=== PATIENT | male | born 1995 | race Caucasian/White ===

== ENCOUNTER 2018-09-16 08:53 | Emergency (ER) | payer OTHER ==
[2018-09-16 09:21] LABS: PLATELET COUNT, AUTOMATED 259 K/uL (150-450)
--- NOTE | 2018-09-16 09:41 | ER Report ---
History and Physical Time Seen By MD: 09:05 Hx. of Stated Complaint: EMS REPORTS SEIZURE LIKE ACTIVITY. PATIENT IS UNABLE TO ANSWER ANY QUESTIONS. ER PROVIDER ORDERED SOFT RESTRAINTS HPI/ROS CHIEF COMPLAINT: Unresponsive altered mental HISTORY OF PRESENT ILLNESS: Patient is a 22-year-old male comes emergency Department via EMS after having a witnessed reported seizure activity well with his girlfriend. On arrival EMS that he was altered mental somewhat combative Sitting up a phasic unclear if he has a seizure history or not. Arrival to the emergency department able to get history until mother arrive she does confirm that he has had seizures in the past primarily was younger has not had one in a while. Patient able to give a need any additional history at this time. Patient placed in soft restraints for safety on arrival patient also received 2 mg of Ativan en route. REVIEW OF SYSTEMS: Respiratory: No cough, no dyspnea. Cardiovascular: No chest pain, no palpitations. Gastrointestinal: No vomiting, no abdominal pain. Musculoskeletal: No back pain. Remainder of the 14 system rev: Yes Allergies: Coded Allergies: No Known Drug Allergies (Unverified , 09/16/18) Unable To Obtain Past Medical: Unable to Obtain/Update Reviewed Nurses Notes: Yes Old Medical Records Reviewed: Yes Hx Substance Use Disorder: Yes Hx Alcohol Use: Yes Constitutional Vital Sign - Last 24 Hours 09/16/18 09/16/18 09/16/18 09/16/18 08:53 08:54 08:55 08:56 Pulse 69 76 Resp 30 24 B/P (MAP) 110/72 110/72 (85) O2 Flow Rate 2.0 09/16/18 09/16/18 09/16/18 09/16/18 09:00 09:23 09:42 09:53 Pulse 73 Resp 26 25 B/P (MAP) 113/76 (88) 116/83 (94) Pulse Ox 97 09/16/18 09/16/18 10:00 11:17 B/P (MAP) 112/81 (91) 116/70 (85) Physical Exam General Appearance: [The patient is alert, has no immediate need for airway protection and no current signs of toxicity.] Altered mental a phasic Eyes: Pupils equal and round no injection. Respiratory: Chest is non tender, lungs are clear to auscultation. Cardiac: regular rate and rhythm [ ] Gastrointestinal: Abdomen is soft and non tender, no masses, bowel sounds normal. Musculoskeletal: Neck: Neck is supple and non tender. Extremities have full range of motion and are non tender. Skin: No rashes or lesions. [ ] DIFFERENTIAL DIAGNOSIS: After history and physical exam differential diagnosis was considered for seizure postictal altered mental status drug reaction stroke Medical Decision Making Data Points Result Diagram: 09/16/18 0907 09/16/18 0907 Laboratory Hematology Test 09/16/18 09:07 09/16/18 11:30 Red Blood Count 4.79 M/uL (4.00-5.60) Mean Corpuscular Volume 93.8 fL (80.0-96.0) Mean Corpuscular Hemoglobin 31.4 pg (26.0-33.0) Mean Corpuscular Hemoglobin Concent 33.4 g/dL (32.0-36.0) Red Cell Distribution Width 12.7 % (11.5-14.5) Mean Platelet Volume 8.7 fL (7.2-11.1) Neutrophils (%) (Auto) 69.5 % (39.4-72.5) Lymphocytes (%) (Auto) 24.2 % (17.6-49.6) Monocytes (%) (Auto) 3.4 % (4.1-12.4) Eosinophils (%) (Auto) 2.3 % (0.4-6.7) Basophils (%) (Auto) 0.6 % (0.3-1.4) Nucleated RBC Relative Count (auto) 0.0 /100WBC Neutrophils # (Auto) 5.6 K/uL (2.0-7.4) Lymphocytes # (Auto) 2.0 K/uL (1.3-3.6) Monocytes # (Auto) 0.3 K/uL (0.3-1.0) Eosinophils # (Auto) 0.2 K/uL (0.0-0.5) Basophils # (Auto) 0.0 K/uL (0.0-0.1) Nucleated RBC Absolute Count (auto) 0.00 K/uL Sodium Level 139 mmol/L (137-145) Potassium Level 3.7 mmol/L (3.5-5.0) Chloride Level 105 mmol/L (98-107) Carbon Dioxide Level 19 mmol/L (22-30) Blood Urea Nitrogen 13 mg/dl (9-21) Creatinine 1.00 mg/dl (0.66-1.25) Glomerular Filtration Rate Calc > 60.0 Random Glucose 190 mg/dl (75-110) Calcium Level 9.2 mg/dl (8.4-10.2) Magnesium Level 2.3 mg/dl (1.7-2.2) Total Bilirubin 0.2 mg/dl (0.2-1.3) Aspartate Amino Transf (AST/SGOT) 29 U/L (0-35) Alanine Aminotransferase (ALT/SGPT) 14 U/L (0-56) Alkaline Phosphatase 81 U/L (0-126) Total Protein 7.3 g/dl (6.3-8.2) Albumin 4.6 g/dl (3.5-5.0) Thyroid Stimulating Hormone (TSH) 2.02 uIU/ml (0.46-4.68) Salicylates Level < 10 mg/L Salicylate Last Dose Date unk Acetaminophen Level < 10 ug/ml Serum Alcohol < 10 mg/dl Chemistry Test 09/16/18 09:07 09/16/18 11:30 White Blood Count 8.1 k/uL (4.5-11.0) Red Blood Count 4.79 M/uL (4.00-5.60) Hemoglobin 15.0 g/dL (14.0-18.0) Hematocrit 44.9 % (42.0-52.0) Mean Corpuscular Volume 93.8 fL (80.0-96.0) Mean Corpuscular Hemoglobin 31.4 pg (26.0-33.0) Mean Corpuscular Hemoglobin Concent 33.4 g/dL (32.0-36.0) Red Cell Distribution Width 12.7 % (11.5-14.5) Platelet Count 259 K/uL (150-450) Mean Platelet Volume 8.7 fL (7.2-11.1) Neutrophils (%) (Auto) 69.5 % (39.4-72.5) Lymphocytes (%) (Auto) 24.2 % (17.6-49.6) Monocytes (%) (Auto) 3.4 % (4.1-12.4) Eosinophils (%) (Auto) 2.3 % (0.4-6.7) Basophils (%) (Auto) 0.6 % (0.3-1.4) Nucleated RBC Relative Count (auto) 0.0 /100WBC Neutrophils # (Auto) 5.6 K/uL (2.0-7.4) Lymphocytes # (Auto) 2.0 K/uL (1.3-3.6) Monocytes # (Auto) 0.3 K/uL (0.3-1.0) Eosinophils # (Auto) 0.2 K/uL (0.0-0.5) Basophils # (Auto) 0.0 K/uL (0.0-0.1) Nucleated RBC Absolute Count (auto) 0.00 K/uL Glomerular Filtration Rate Calc > 60.0 Calcium Level 9.2 mg/dl (8.4-10.2) Magnesium Level 2.3 mg/dl (1.7-2.2) Total Bilirubin 0.2 mg/dl (0.2-1.3) Aspartate Amino Transf (AST/SGOT) 29 U/L (0-35) Alanine Aminotransferase (ALT/SGPT) 14 U/L (0-56) Alkaline Phosphatase 81 U/L (0-126) Total Protein 7.3 g/dl (6.3-8.2) Albumin 4.6 g/dl (3.5-5.0) Thyroid Stimulating Hormone (TSH) 2.02 uIU/ml (0.46-4.68) Salicylates Level < 10 mg/L Salicylate Last Dose Date unk Acetaminophen Level < 10 ug/ml Serum Alcohol < 10 mg/dl Toxicology Test 09/16/18 09:07 09/16/18 11:30 Salicylates Level < 10 mg/L Salicylate Last Dose Date unk Acetaminophen Level < 10 ug/ml Serum Alcohol < 10 mg/dl Urinalysis Test 09/16/18 11:30 ED Course/Re-evaluation ED Course ED course patient's family is not bedside and reportedly has had a couple of similar episodes when he was younger approximately 13 years old he had an episode about a year after that he had an episode however he didn't B was seen by a neurologist and EEG which is negative and does not report subsequent issues since then due to the negative workup by neurology negative head CT today Baseline labs were relatively unremarkable and went about an MRI and MRA of the brain MRI of the brain showed no obvious focal abnormalities to explain his seizure activity this may just be undiagnosed and infrequent seizure recommending follow-up with neurologist I last time he is seen was almost 10 years ago questions asked about prophylactically giving him antiseizure medicine since his 1st isolated seizure in the last 10 years prior to the family they have declined a seizure medication this time is reasonable however things worsen I advised him to call me or come back in the ED patient will be discharged back to primary care and follow-up with neurology Decision to Disposition Date: September 16, 2018 Decision to Disposition Time: 11:44 Depart Departure Latest Vital Signs Vital Signs Date Time Temp Pulse Resp B/P (MAP) Pulse Ox O2 Delivery O2 Flow Rate FiO2 09/16/18 11:17 116/70 (85) 09/16/18 09:53 25 09/16/18 09:23 73 97 09/16/18 08:56 2.0 Impression: Primary Impression: Seizure Condition: Improved Disposition: HOME OR SELF-CARE Referrals: CHELE CLAYTON DNP, [employer]-[facility] (PCP) 5 Days Patient Instructions: New-Onset Seizure in Adults (DC) SHAHNAZ MONCADA MD September 16, 2018 09:41
--- NOTE | 2018-09-16 10:03 | RADIOLOGY IMAGING REPORT ---
FACILITY: [facility] PATIENT NAME: Zain Garcia : 1995 MR: [id number] V: [id number] EXAM DATE: ORDERING PHYSICIAN: SHAHNAZ MONCADA TECHNOLOGIST: Location: [facility] Patient: Zain Garcia : 1995 Visit/Account:[id number] Date of Sevice: 09/16/2018 EXAMINATION: CT Head without intravenous contrast HISTORY: Altered mental status. TECHNIQUE: Axial images were obtained from the skull base to the vertex without intravenous contrast . Sagittal and coronal reformatted images are also submitted. One of the following dose optimization techniques was utilized in the performance of this exam: Autom ated exposure control; adjustment of the mA and/or kV according to the patient's size; or use of an i terative reconstruction technique. Specific details can be referenced in the facility's radiology C T exam operational policy. COMPARISON: None available. FINDINGS: Brain volume: Normal. Ventricles: Negative. Acute ischemic changes: None. Hemorrhage: None. Masses / edema: None. Mcclellan-white: Negative. White matter: Negative. Vessels: Negative. Extra-axial: A few small calcifications along the falx. Otherwise negative. Calvarium / skull base: Negative. Visualized sinuses / orbits: Negative. IMPRESSION: No acute intracranial abnormality. Report Dictated By: Lee King MD at 09/16/2018 9:54 AM Report E-Signed By: Lee King MD at 09/16/2018 9:58 AM [email or web address]
[2018-09-16] MEDS ORDERED: GADOBENATE 529MG/1ML 15ML VIAL IVP ONE (10:45)
--- NOTE | 2018-09-16 11:25 | RADIOLOGY IMAGING REPORT ---
FACILITY: [facility] PATIENT NAME: Zain Garcia : 1995 MR: [id number] V: [id number] EXAM DATE: ORDERING PHYSICIAN: SHAHNAZ MONCADA TECHNOLOGIST: Location: [facility] [place] Patient: Zain Garcia : 1995 Visit/Account:[id number] Date of Sevice: 09/16/2018 EXAMINATION: MRI Brain without intravenous contrast MRI Brain with intravenous contrast HISTORY: Altered mental status. COMPARISON: Noncontrast head CT from same date. TECHNIQUE: Multi-planar, multi-sequence brain MRI was performed before and after IV gadolinium. CONTRAST: 13 mL of IV MultiHance FINDINGS: Brain volume: Normal. Sagittal midline structures: Negative. Ventricles: Negative. Acute ischemic changes: None. Hemorrhage: None. Masses / edema: None. Enhancement: Negative. Mcclellan-white: Negative. White matter: Negative. Vessels: Negative. Extra-axial: Negative. Calvarium / scalp: Negative. Skull base: Negative. Visualized sinuses / orbits: Negative. Visualized upper neck: Negative. IMPRESSION: Normal brain MRI without and with IV contrast. Report Dictated By: Lee King MD at 09/16/2018 11:18 AM Report E-Signed By: Lee King MD at 09/16/2018 11:22 AM [email or web address]
[2018-09-16 11:30] VITALS: BP 128/73
[2018-09-16] MEDS ORDERED: ACETAMINOPHEN 500 MG TAB PO ONE (11:40)
== END 2018-09-16 12:02 | disposition home or self-care (01) ==
LOC: EDBD 08:53 → ER 09:09
DX: R56.9 Unspecified convulsions (principal)
CPT/HCPCS: 70450; 70553; 80305; 80320; 80329; 81001; 83735; 84443; 85025; 99284; A9577; 82040; 82247; 82310; 82374; 82435; 82565; 82947; 84075; 84132; 84155; 84295; 84450; 84460; 84520

== ENCOUNTER → 2018-09-16 | Outpatient (CLI) | payer OTHER | LOC: AMB 08:22 | DX: R40.20 Unspecified coma (principal); R56.9 Unspecified convulsions | CPT/HCPCS: A0425; A0427 ==